=== PATIENT | male | born 1990 | race Two or more races ===

== ENCOUNTER 2017-03-10 12:57 | Emergency (ER) | payer MEDICAID ==
[~2017-03-10] VITALS: Ht 167.6 cm; Wt 90.5 kg
[~2017-03-10 12:57] MED LIST: IBUP-1542 PO; SODI44SP11 NASAL
[2017-03-10 13:14] VITALS: Ht 167.6 cm; Wt 90.5 kg
[2017-03-10] MEDS ORDERED: STERILE WATER 1L IRRIG BTL IRR STA (14:02)
[2017-03-10] MEDS ORDERED: IBUPROFEN 800 MG TAB PO STA (14:02)
[2017-03-10] MEDS ORDERED: LIDOCAINE 1% (MDV) 10 ML INJ INJ STA (14:02)
[2017-03-10] MEDS ORDERED: DIPHTH/TET/ACEL PERTUSS (ADULT) 0.5 ML VIAL IM ONE (14:30)
--- NOTE | 2017-03-10 19:19 | ERD ---
ER Documentation Chief Complaint Date/Time DATE: 03/10/17 TIME: 19:17 Chief Complaint Patient here for a lac HPI 26-year-old male presents with a laceration to his left knee after tripping while outside and cut his knee exposed piece of metal. His tetanus is not up-to -date. He has no restricted range of motion or fevers. Denies any other injury other than his left knee laceration ROS All systems reviewed and are negative except as per history of present illness. Medications Home Meds Active Scripts Sodium Chloride (Saline Nasal [place]) 45 Ml [place], 2 SPRAYS NASAL Q2H Y for NASAL CONGESTION, #1 BOTTLE Prov:NIKKI ANNE. SOFTWARE COMPUTER SPECIALIST 09/12/15 Ibuprofen* (Motrin*) 600 Mg Tab, 600 MG PO Q6H Y for PAIN AND OR ELEVATED TEMP, #30 TAB Prov:NIKKI ANNE. SOFTWARE COMPUTER SPECIALIST 09/12/15 Allergies Allergies: Coded Allergies: No Known Drug Allergies (Verified Allergy, Unknown, 09/11/15) PMhx/Soc History of Surgery: Yes (Nasal reconstruction, Rt Knee meniscus & ACL, Appendectomy) Anesthesia Reaction: No Hx Neurological Disorder: No Hx Respiratory Disorders: No Hx Cardiac Disorders: No Hx Psychiatric Problems: No Hx Miscellaneous Medical Probl: No Hx Alcohol Use: Yes (Occasionally) Hx Substance Use: No Hx Tobacco Use: Yes Smoking Status: Current every day smoker Physical Exam Vitals Vital Signs Date Time Temp Pulse Resp B/P Pulse Ox O2 Delivery O2 Flow Rate FiO2 03/10/17 13:14 97.5 84 20 152/81 97 Physical Exam Const: [], [id number]. Head: Atraumatic Eyes: Normal Conjunctiva ENT: Normal External Ears, Nose and Mouth. Neck: Full range of motion..~ No meningismus. Resp: Clear to auscultation bilaterally Cardio: Regular rate and rhythm, no murmurs Abd: Soft, non tender, non distended. Normal bowel sounds Skin: No petechiae or rashes Back: No midline or flank tenderness Ext: No cyanosis, or edema. Approximately 3 cm V-shaped laceration over the left patella. There is no appreciable bony step-offs or. Is no appreciation of tendon deficits or redness and there is no calf swelling or Homans sign. Neur: Awake and alert Psych: Normal Mood and Affect Results 24 hrs Current Medications Medications (Trade) Dose Ordered Sig/Chapis Route PRN Reason Start Time Stop Time Status Last Admin Dose Admin Diphtheria/ Tetanus/Acell Pertussis (Adacel) 0.5 ml ONCE ONCE IM 03/10/17 14:30 03/10/17 14:31 DC 03/10/17 14:21 Sterile Water (Water Sterile For Irrigation) 1,000 ml ONCE STAT IRR 03/10/17 14:02 03/10/17 14:04 DC Lidocaine HCl (Lidocaine 1% (Mdv) 10 ml) 10 ml ONCE STAT INJ 03/10/17 14:02 03/10/17 14:04 DC Ibuprofen (Motrin) 800 mg ONCE STAT PO 03/10/17 14:02 03/10/17 14:04 DC 03/10/17 14:20 Procedures/MDM Patient presents with a laceration to his left knee over the patella. No evidence of tendon or neurologic deficits or bacterial infection. Patient was given a tetanus booster. Procedure note-the left knee was irrigated copiously with normal saline. 3 cc of lidocaine was used for local infiltration 7 4-0 nylon sutures were used to reapproximate the wound and the patient tolerated procedure well and the wound was dressed. X-ray of the left knee and patella was ordered but patient was noted to be found despite good jake effort and marked as eloped. Departure Diagnosis: Primary Impression: Laceration Condition: Stable Patient Instructions: Rogers Lindsey KEVIN N. MD Mar 10, 2017 19:18
== END 2017-03-10 23:00 | disposition left against medical advice (07) ==
LOC: FTE 12:57 → E/R 23:00
DX: S81.012A Laceration without foreign body, left knee, initial encounter (principal); F17.210 Nicotine dependence, cigarettes, uncomplicated; W26.8XXA Contact with other sharp object(s), not elsewhere classified, initial encounter; Y92.9 Unspecified place or not applicable; Z23 Encounter for immunization
CPT/HCPCS: 12002; 90471; 90715; A4217; Z7502; Z7610